=== PATIENT | male | born 2000 | race Caucasian/White ===

== ENCOUNTER → 2020-09-21 | Outpatient (CLI) | payer OTHER ==
[~2020-09-21] MED LIST: FLOMAX0.4 MG PO; TORADOL 10 MG T10 MG PO
== END ==
LOC: KOH-I 11:54
DX: R31.9 Hematuria, unspecified (principal); R10.9 Unspecified abdominal pain; N20.0 Calculus of kidney
CPT/HCPCS: 74176

== ENCOUNTER 2020-09-26 13:45 | Emergency (ER) | payer OTHER ==
[2020-09-26 15:16] LABS: HEMOGLOBIN 15.3 gm/dl (14.0-17.5); RED BLOOD COUNT 4.89 M/UL (4.20-5.50); WHITE BLOOD COUNT 5.7 K/UL (4.5-11.0)
[2020-09-26 16:02] LABS: BUN/CREATININE RATIO 14 (0-10)
[2020-09-26] MEDS ORDERED: TORADOL 10 MG T10 MG PO (16:31)
[2020-09-26] MEDS ORDERED: FLOMAX0.4 MG PO (16:31)
== END 2020-09-26 16:31 | disposition home or self-care (01) ==
LOC: ER1 13:45
PROVIDERS: Physician Assistant
DX: N20.0 Calculus of kidney (principal); F17.200 Nicotine dependence, unspecified, uncomplicated; Z87.442 Personal history of urinary calculi
CPT/HCPCS: 80053; 81001; 85025; 96372; 99284; J1885

== ENCOUNTER 2021-01-07 00:08 | Emergency (ER) | payer OTHER ==
[2021-01-07 02:20] LABS: HEMOGLOBIN 14.7 gm/dl (14.0-17.5); RED BLOOD COUNT 4.7 M/UL (4.20-5.50); WHITE BLOOD COUNT 5.9 K/UL (4.5-11.0)
[2021-01-07 02:46] LABS: BUN/CREATININE RATIO 14 (0-10)
== END 2021-01-07 03:20 | disposition home or self-care (01) ==
LOC: ER1 00:08
PROVIDERS: Family Medicine
DX: R07.89 Other chest pain (principal); F17.290 Nicotine dependence, other tobacco product, uncomplicated
CPT/HCPCS: 71045; 80048; 82550; 82553; 83874; 84484; 85025; 85379; 93005; 99285